=== PATIENT | male | born 1990 | race African-American/Black ===

== ENCOUNTER 2021-09-04 07:49 | Emergency (ER) | payer BC ==
[~2021-09-04] VITALS: Ht 170.2 cm; Wt 79.4 kg
[2021-09-04] MEDS ORDERED: SODIUM CHLORIDE 0.9% 1000ML 1,000 ML IV STA (08:29)
[2021-09-04] MEDS ORDERED: LEVETIRACETAM500 MG PO (08:33)
[2021-09-04] MEDS ORDERED: SODIUM CHLORIDE 0.9% 1000ML 1,000 ML ONE (08:48)
[2021-09-04] MEDS ORDERED: AZITHROMYCIN250 MG PO (09:43)
== END 2021-09-04 09:49 | disposition home or self-care (01) ==
LOC: FSED 08:29
DX: R10.33 Periumbilical pain (principal); R05.9 Cough, unspecified; G40.909 Epilepsy, unspecified, not intractable, without status epilepticus
CPT/HCPCS: 74177; 80048; 80076; 81003; 85025; 99284; J7030